=== PATIENT | female | born 1975 | race Caucasian/White ===

== ENCOUNTER 2018-07-26 15:22 | Emergency (ER) | payer OTHER, SELFPAY ==
[2018-07-26] VITALS (8 sets, daily range): BP systolic 131–161; BP diastolic 68–114; PULSE 107–130; RESP 14–24; TEMP 37.2–38.5; O2SAT 100
--- NOTE | 2018-07-26 15:31 | DI.RAD.S_ITS ---
PROCEDURE: XR CHEST 1V INDICATIONS: suspected sepsis TECHNIQUE: One view of the chest was acquired. COMPARISON: None. FINDINGS: Surgical changes and devices: None. Lungs and pleura: Lungs are clear. No pleural effusions or pneumothorax. Mediastinum: Mediastinal contours appear normal except for moderate size hiatal hernia behind the heart.. Heart size is normal. Bones and chest wall: No suspicious bony lesions. Overlying soft tissues appear unremarkable. IMPRESSION: Source of suspected sepsis syndrome is not seen. Moderate-sized hiatal hernia noted behind the heart. Dictated by: Rubin Aburto M.D. on 07/26/2018 at 16:31 Approved by: Rubin Aburto M.D. on 07/26/2018 at 16:31
--- NOTE | 2018-07-26 15:41 | ED.FEVER ---
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 Discharge Date/Time: 07/26/18 19:47 Interventions: ED Discharge Assessment Last Done: 07/26/18 19:08 Instructions: DI for Flank Pain Activity Restrictions/Additional Instructions: Please return as we talked about if you have any acutely worsening symptoms again, but otherwise please continue [id number] ibuprofen as needed and you can also add Tylenol or use your Excedrin for headache as needed. Please follow up as planned tomorrow with the [facility] so that they can help you get to more care and resources, and also please call the insurance administrators tomorrow to get help in finding a local PCP so you can follow up on your hiatal hernia. Prescriptions: No Action ibuprofen [Advil] 200 mg Tablet 200 mg PO PRN PRN (Reason: pain) RF: 0 Excedrin Extra Strength 1 dose PO PRN PRN (Reason: pain) RF: 0 <Stephen Coreas DO - Last Filed: 07/27/18 08:17> Cosign ED Attending Griffin Attestation: I was immediately available in the department for consultation. Documentation has been reviewed. I agree with assessment and plan.
[2018-07-26 15:52] LABS: WBC Urine None Seen (0-5/HPF)
[2018-07-26] MEDS: ONDANSETRON 4 MG/2 ML INJ IV (15:55)
[2018-07-26] MEDS: SODIUM CHLORIDE 0.9% 1,000 ML 1000 ML IV (15:55)
[2018-07-26] MEDS: KETOROLAC 60 MG/2 ML VIAL 30 MG IV (15:55)
[2018-07-26 15:59] LABS: Add Manual Diff / Slide Review NO; Basophils Absolute Auto 0 /uL (0-100); Basophils Percent Auto 0.3 % (0-2); Eosinophils Absolute Auto 100 /uL (0-450); Eosinophils Percent Auto 0.8 % (2-4); Hematocrit 38.7 % (36-46); Hemoglobin 12.7 g/dL (12.0-16.0); Lymphocytes Absolute Auto 1400 /uL (1100-4500); Lymphocytes Percent Auto 12.5 % (25-40); Mean Corpuscular HGB Conc 32.8 % (30-36); Mean Corpuscular Hemoglobin 30.3 PG (26-34); Mean Corpuscular Volume 92.2 fL (80-100); Monocytes Absolute Auto 1600 /uL (0-900); Monocytes Percent Auto 13.5 % (3-14); Neutrophils Absolute Auto 8400 /uL (1500-7000); Neutrophils Percent Auto 72.9 % (50-75); Platelet Count 359 X10^3/uL (150-400); Red Cell Distribution Width 13.6 % (11.6-14.8); White Blood Cell Count 11.5 X10^3/uL (4.5-11.0)
--- NOTE | 2018-07-26 16:00 | ED_ITS ---
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 Discharge Assessment Last Done: 07/26/18 19:08 Instructions: DI for Flank Pain Activity Restrictions/Additional Instructions: Please return as we talked about if you have any acutely worsening symptoms again, but otherwise please continue tdpk-zxl-yekqzfx ibuprofen as needed and you can also add Tylenol or use your Excedrin for headache as needed. Please follow up as planned tomorrow with the [facility] so that they can help you get to more care and resources, and also please call the insurance administrators tomorrow to get help in finding a local PCP so you can follow up on your hiatal hernia. Prescriptions: No Action ibuprofen [Advil] 200 mg Tablet 200 mg PO PRN PRN (Reason: pain) RF: 0 Excedrin Extra Strength 1 dose PO PRN PRN (Reason: pain) RF: 0 <Stephen Coreas DO - Last Filed: 07/27/18 08:17> Cosign ED Attending Griffin Attestation: I was immediately available in the department for consultation. Documentation has been reviewed. I agree with assessment and plan.
[2018-07-26 16:05] LABS: Prothrombin Time 11.7 SECONDS (10.1-12.7)
[2018-07-26 16:08] LABS: PTT Partial Thromboplastin Tim 33 SECONDS (26.4-36.2)
[2018-07-26 16:09] LABS: Bacteria Urine Few (2-10); Culture Indicated Urine Cult Not Indicated; RBC Urine 1-5/HPF (0-5/HPF); Squamous Epithelial Cell Urine None Seen (0-5/HPF)
[2018-07-26 16:11] LABS: Lactate (Lactic Acid) 1.5 mmol/L (0.7-2.1)
[2018-07-26 16:19] LABS: Alanine Aminotransferase 41 IU/L (9-52); Albumin 4.1 g/dL (3.5-5.0); Albumin Globulin Ratio 1.1 (1.0-2.8); Alkaline Phosphatase 88 U/L (38-126); Aspartate Aminotransferase 42 IU/L (14-36); Bilirubin Total 0.4 mg/dL (0.2-1.3); Blood Urea Nitrogen 12 mg/dL (7-17); Calcium 9.2 mg/dL (8.4-10.2); Carbon Dioxide 27 mmol/L (22-32); Chloride 99 mmol/L (98-107); Estimated Glomerular Filt Rate > 60.0 mL/min (>60); Globulin 3.7 g/dL (1.7-4.1); Glucose 87 mg/dL (70-100); HEMOLYSIS < 15 (0-50); Lipase 97 U/L (23-300); Potassium 3.7 mmol/L (3.4-5.1); Sodium 139 mmol/L (137-145); Total Protein 7.8 g/dL (6.3-8.2)
[2018-07-26] MEDS: ACETAMINOPHEN 325 MG TABLET 650 MG PO (16:23)
--- NOTE | 2018-07-26 16:28 | DI.CT.S_ITS ---
PROCEDURE: CT KIDNEY URETER BLADDER (KUB) INDICATIONS: Left flank pain for several weeks, fever TECHNIQUE: Noncontrast 5 mm thick sections acquired from the diaphragms to the symphysis. 5 mm thick coronal and sagittal reformats were then performed. For radiation dose reduction, the following was used: automated exposure control, adjustment of mA and/or kV according to patient size. COMPARISON: [facility], CR, XR CHEST 1V, 07/26/2018, 15:36. FINDINGS: Image quality: Excellent. Lung bases: Lung bases are clear. Heart size is normal. There is a unusually prominent hiatal hernia behind the heart with a thickening of the wall of the hiatal hernia it is difficult to accurately establish as sequela of crowding of the gastric wall folds versus mass. Urinary system: Both kidneys are normal in size. No kidney stones. No hydronephrosis or perinephric fat stranding. Both ureters appear non-dilated throughout their expected courses. Bladder wall thickness is normal; no calcified bladder stones. Other solid organs: Liver is normal in size. Gallbladder is not seen. Pancreas is normal in contours. Spleen is normal in size. No adrenal nodules. Peritoneum and bowel: Unenhanced bowel loops demonstrate normal wall thickness and caliber. No free fluid or air. Nodes and vessels: No retroperitoneal or mesenteric adenopathy by size criteria. Aorta and inferior vena cava are normal in caliber. Abdominal wall: No ventral hernias. Pelvis: No free pelvic fluid. No inguinal hernias or adenopathy. Pelvic phleboliths are seen adjacent to the expected course of the distal ureters but a definite ureteral stone is not found. The bladder appears normal. Bones: No suspicious bony lesions. No vertebral body compression fractures. IMPRESSION: 1. Unusually prominent hiatal hernia is noted with wall thickening to the degree that a mass lesion conceivably could be present. This would be relatively unlikely in a 43-year-old patient but remains a possible abnormality requiring followup. Please correlate clinically. Followup by upper GI examination or endoscopy may be warranted depending on the clinical findings. 2. A source of flank pain on the left is not identified. Reportedly a fever is present. A source of fever is not found. The study is performed without oral or intravenous contrast and therefore is quite limited. 3. A normal or abnormal gallbladder cannot be located. Surgical clips are not seen at the gallbladder fossa area but the gallbladder itself may simply be small/contracted. Dictated by: Rubin Aburto M.D. on 07/26/2018 at 16:58 Approved by: Rubin Aburto M.D. on 07/26/2018 at 17:10
[2018-07-26 16:34] LABS: Monotest Negative (Negative); Procalcitonin 0.11 ng/mL (<0.5)
[2018-07-26 16:35] LABS: Urine Amphetamines Positive (Negative); Urine Barbiturates Negative (Negative); Urine Benzodiazepines Negative (Negative); Urine Cocaine Negative (Negative); Urine MDMA Negative (Negative); Urine Methadone Negative (Negative); Urine Methamphetamines Positive (Negative); Urine Morphine/Opi cutoff 2000 Negative (Negative); Urine Oxycodone Negative (Negative); Urine Phencyclidine Negative (Negative); Urine Tetrahydrocannabinol Negative (Negative); Urine Tricyclic Antidepressant Negative (Negative)
--- NOTE | 2018-07-26 16:40 | PC.NURSE ---
Pt tearful, states to this RN, that she is suicidal, states she has a plan, she just needs to do it She feels like she needs to do it before they get to her first. When asked for clarification, she states she has a fillet knife in her car and she is going to slice her neck.
--- NOTE | 2018-07-26 16:44 | PC.NURSE ---
SUSAN-DRAGAN Note: RN talked with patient about 1:1 supervision and Patient safety Monitoring checks due to being suicidal. Pt. compliant. Pt. agreed to wear green scrubs. Pt. calm and laying down.
--- NOTE | 2018-07-26 17:19 | PC.NURSE ---
BROADCAST CORRESPONDENT-PLANT CLERK Note: facilities maintenance worker is talking with patient. Pt. is calm and interacting with social insurance adviser.
[2018-07-26 17:50] LABS: Influenza A and B by PCR Rapid Negative (Negative)
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
--- NOTE | 2018-07-26 19:03 | PC.NURSE ---
SCRUB WOMAN-CABLE FORMER Note: Patient has been cleared by social worker health services. No more 1:1 Ray notified. shower offered and Pt. accepted. Shower provided, Oral care provided, and Clean clothing provided.
--- NOTE | 2018-07-26 19:06 | PC.NURSE ---
IV removed, patient cleared by social work and Nupur from 1 on . Pt to take a shower prior to DC.
[2018-07-27 08:42] LABS: Enterococcus species Not Detected (Not Detect); Listeria monocytogenes Not Detected (Not Detect); Staphylococcus species Not Detected (Not Detect); Vancomycin-rest genes A/B Not Detected (Not Detect)
[2018-07-27 08:43] LABS: Acinetobacter baumannii Not Detected (Not Detect); Candida albicans Not Detected (Not Detect); Candida glabrata Not Detected (Not Detect); Candida krusei Not Detected (Not Detect); Candida parapsilosis Not Detected (Not Detect); Candida tropicalis Not Detected (Not Detect); Enterobacter cloacae complex Not Detected (Not Detect); Enterobacteriaceae species Detected (Not Detect); Haemophilus influenzae Not Detected (Not Detect); KPC (carbapenem-resist gene) Not Detected (Not Detect); Methicillin-resistant gene Not Detected (Not Detect); Neisseria meningitidis Not Detected (Not Detect); Proteus species Not Detected (Not Detect); Pseudomonas aeruginosa Not Detected (Not Detect); Serratia marcescens Not Detected (Not Detect); Streptococcus agalactiae (Gr B Not Detected (Not Detect); Streptococcus pneumonia Not Detected (Not Detect); Streptococcus pyogenes (Gr A) Not Detected (Not Detect); Streptococcus species Not Detected (Not Detect)
[2018-07-27 08:45] LABS: E. coli Detected (Not Detect)
== END 2018-07-26 19:47 | disposition home or self-care (01) ==
PROVIDERS: Emergency Medicine; Emergency Provider Internal Medicine
DX: R10.9 Unspecified abdominal pain (principal); R50.9 Fever, unspecified
CPT/HCPCS: 36415; 36591; 71045; 74176; 80053; 80305; 81003; 81015; 81025; 83605; 83690; 84145; 85025; 85610; 85730; 86318; 87040; 87150; 87186; 87205; 87400; 96361; 96374; 96375; 99284; 99285; J1885; J2405

== ENCOUNTER 2020-10-17 19:21 | Emergency (ER) | payer SELFPAY ==
[2020-10-17] VITALS (7 sets, daily range): BP systolic 174–201; BP diastolic 120–127; PULSE 102–122; RESP 16–26; TEMP 36.6; O2SAT 98–100
--- NOTE | 2020-10-17 19:41 | DI.RAD.S_ITS ---
PROCEDURE: XR CHEST 1V INDICATIONS: chest pain TECHNIQUE: One view of the chest was acquired. COMPARISON: [facility], CT, CT KIDNEY URETER BLADDER (KUB), 07/26/2018, 16:46. [facility], CR, XR CHEST 1V, 07/26/2018, 15:36. FINDINGS: Surgical changes and devices: None. Lungs and pleura: Lungs are clear. No pleural effusions or pneumothorax. Mediastinum: Mediastinal contours appear normal. Heart size is normal. Mild to moderate hiatal hernia. Bones and chest wall: No suspicious bony lesions. Overlying soft tissues appear unremarkable. IMPRESSION: Hiatal hernia. No evidence acute pulmonary process. Dictated by: John Herrera M.D. on 10/17/2020 at 21:05 Approved by: John Herrera M.D. on 10/17/2020 at 21:06
[2020-10-17 20:15] LABS: Add Manual Diff / Slide Review NO; Basophils Absolute Auto 100 /uL (0-100); Basophils Percent Auto 1.8 % (0-2); Eosinophils Absolute Auto 100 /uL (0-450); Eosinophils Percent Auto 1.1 % (2-4); Hematocrit 43.7 % (36-46); Hemoglobin 14.5 g/dL (12.0-16.0); Lymphocytes Absolute Auto 2300 /uL (1100-4500); Lymphocytes Percent Auto 30.9 % (25-40); Mean Corpuscular HGB Conc 33.2 % (30-36); Mean Corpuscular Hemoglobin 30.6 PG (26-34); Mean Corpuscular Volume 92.3 fL (80-100); Monocytes Absolute Auto 600 /uL (0-900); Monocytes Percent Auto 8.4 % (3-14); Neutrophils Absolute Auto 4300 /uL (1500-7000); Neutrophils Percent Auto 57.8 % (50-75); Platelet Count 287 X10^3/uL (150-400); Red Blood Cell Count 4.73 X10^6/uL (4.0-5.2); Red Cell Distribution Width 13.1 % (11.6-14.8); White Blood Cell Count 7.4 X10^3/uL (4.5-11.0)
[2020-10-17 20:26] LABS: Alanine Aminotransferase 19 IU/L (<35); Albumin 4.4 g/dL (3.5-5.0); Albumin Globulin Ratio 1.3 (1.0-2.8); Alkaline Phosphatase 82 U/L (38-126); Aspartate Aminotransferase 25 IU/L (14-36); BUN Creatinine Ratio 15.6 (6-22); Bilirubin Total 0.3 mg/dL (0.2-1.3); Blood Urea Nitrogen 15 mg/dL (7-17); Calcium 10.1 mg/dL (8.4-10.2); Carbon Dioxide 30 mmol/L (22-32); Chloride 103 mmol/L (98-107); Creatine Kinase 62 U/L (30-135); Estimated Glomerular Filt Rate > 60.0 mL/min (>60); Globulin 3.5 g/dL (1.7-4.1); Glucose 108 mg/dL (70-100); HEMOLYSIS < 15 (0-50); Lipase 119 U/L (23-300); Potassium 3.5 mmol/L (3.4-5.1); Sodium 140 mmol/L (137-145); Total Protein 7.9 g/dL (6.3-8.2)
[2020-10-17 20:37] LABS: Troponin I < 0.012 ng/mL (0.01-0.034)
[2020-10-17 20:45] LABS: Acetaminophen < 10 ug/mL (10-30); Ethanol (ETOH) < 10 mg/dL; Salicylate 2.5 mg/dL (<20)
[2020-10-17 20:48] LABS: COVID19 -Nasal RAPID Negative (Negative)
[2020-10-17 21:00] LABS: Appearance Urine UA CLEAR; Bilirubin Urine UA NEGATIVE (NEGATIVE); Color Urine UA YELLOW; Glucose Urine UA NEGATIVE (Negative); Ketones Urine UA NEGATIVE (NEGATIVE); Leukocyte Esterase Urine UA NEGATIVE (NEGATIVE); Nitrite Urine UA POSITIVE (Negative); Occult Blood Urine UA NEGATIVE (Negative); Protein Urine UA NEGATIVE (Negative); Urobilinogen Urine UA 0.2 E.U./dL (0.2)
[2020-10-17 21:08] LABS: UR Morphine/Opiate cutoff 300 Negative (Negative); Ur Creatinine Normal (Normal); Ur Specific Gravity Normal (Normal); Urine Amphetamines Positive (Negative); Urine Barbiturates Negative (Negative); Urine Benzodiazepines Negative (Negative); Urine Cocaine Negative (Negative); Urine MDMA Negative (Negative); Urine Methadone Negative (Negative); Urine Methamphetamines Positive (Negative); Urine Oxycodone Negative (Negative); Urine Phencyclidine Negative (Negative); Urine Tetrahydrocannabinol Negative (Negative); Urine Tricyclic Antidepressant Negative (Negative); Urine pH Normal (Normal)
[2020-10-17 21:09] LABS: Pregnancy Test Urine Negative (Negative)
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
--- NOTE | 2020-10-17 21:14 | ED_ITS ---
HPI - General Adult General Chief complaint: Shortness of Breath/Dyspnea Stated complaint: THROAT AND JAW PAIN, difficulty breathing Time Seen by Provider: 10/17/20 19:49 Source: patient Mode of arrival: Ambulatory History of Present Illness HPI narrative: Patient is a 45-year-old female who is here for evaluation of several weeks of bilateral lower jaw pain. She states that she has seen a dentist a couple weeks ago and was told that she had a abscess. She was given a prescription for antibiotics. She states she has them in her car but has never taken them. She cannot give a specific reason why. She does not know exactly what antibiotics she has been given. She states over the past couple days the pain has been worsening. She also describes a lump in the left side of her neck that also has been enlarging. She feels like the pain is on the front of her neck causing her to have some problems with breathing. Related Data Home Medications Medication Instructions Recorded Confirmed diphenhydramine 25 #0 08/30/12 mg-acetaminophen 500 mg tablet (Tylenol PM Extra Strength) ibuprofen 200 mg tablet (Advil) #0 08/30/12 Excedrin Extra Strength 1 dose PO PRN PRN 07/26/18 07/26/18 ibuprofen 200 mg tablet (Advil) 200 mg PO PRN PRN 07/26/18 07/26/18 Previous Rx's Medication Instructions Recorded penicillin V potassium 500 mg 500 mg PO QID 7 Days #28 tab 10/18/20 tablet Allergies Allergy/AdvReac Type Severity Reaction Status Date / Time INGREDIENT: NO KNOWN - NO Allergy Unknown Uncoded 07/27/18 08:59 KNOWN DRUG ALLERGY narcotics AdvReac Intermediate Uncoded 07/27/18 08:59 Review of Systems Constitutional Comments: No fevers Eyes Eyes: Reports system reviewed and no additional complaints, except as documented ENT Ears, Nose, Mouth, and Throat: Reports as per HPI Cardiovascular Cardiovascular: Reports system reviewed and no additional complaints, except as documented Respiratory Respiratory: Reports as per HPI Gastrointestinal Gastrointestinal: Reports system reviewed and no additional complaints, except as documented Genitourinary Genitourinary: Reports system reviewed and no additional complaints, except as documented Musculoskeletal Musculoskeletal: Reports system reviewed and no additional complaints, except as documented Integumentary/Breasts Skin/Breast: Reports system reviewed and no additional complaints, except as documented Neurologic Neurologic: Reports system reviewed and no additional complaints, except as documented Psychiatric Comments: Patient did endorse being unsafe at home and having SI with a plan Hematologic/Lymphatic On Anticoagulants: No Allergic/Immunologic Allergic/Immunologic: Reports system reviewed and no additional complaints, except as documented Patient History Medical History Amenorrhea Williamson's cyst Fibromyalgia History of alcohol abuse History of ulcer disease Hypertension MRSA (methicillin resistant Staphylococcus aureus) carrier anemia Raynaud's disease Surgical History (Updated 07/27/18 @ 08:59 by Omaira Anne) History of repair of hiatal hernia Social History Smoking Status: Current every day smoker Smoking Status: Current every day smoker alcohol intake frequency: other Substance Use Type: methamphetamine Exam Initial Vital Signs Initial Vital Signs: Vital Signs Temperature 97.9 F 10/17/20 19:34 Pulse Rate 122 H 10/17/20 19:34 Respiratory Rate 16 10/17/20 19:34 Blood Pressure 174/120 H 10/17/20 19:34 Pulse Oximetry 99 10/17/20 19:34 Const General: cooperative and disheveled HENMT Head: normal to inspection Nose: external nose normal Face and sinus: normal facial exam Mouth: other (No abscess seen in the oral mucosa.) Teeth and gingiva: poor dentition Throat: posterior oropharynx normal Eyes General: appearance normal, both eyes and all related structures Neck Other: One left-sided 1 cm lymph node Resp Effort & Inspection: normal respiratory effort Cardio Rate: regular rate GI Inspection: normal to inspection Skin General: no rashes or lesions noted Neuro General: patient alert, patient awake, patient oriented x3 and moves all extremities Extrem General: normal to inspection and capillary refill normal Psych Appearance: grossly normal and disheveled Course Orders Ordered: ED Orders 10/17/20 19:41 Consult to BLOCK PILER - Manager Office Services Stat XR chest 1V Stat EKG-12 Lead Stat 10/17/20 20:05 Acetaminophen Stat Complete Blood Count AUTO DIFF Stat Comprehensive Metabolic Panel Stat Ethanol (ETOH) Stat Lipase Stat Salicylate Stat Thyroid Stimulating Hormone Stat Troponin & CK Cardiac Panel Stat 10/17/20 20:30 COVID19 -Nasal swab/Pre-Proc Stat 10/17/20 20:55 Test Urine Stat Urinalysis and Microscopic Stat Urine Culture Stat Urine Drug Screen, Rapid Stat Vital Signs Vital signs: Vital Signs - 8 hr 10/17/20 19:34 10/17/20 20:09 10/17/20 20:30 Temperature 97.9 F Pulse Rate 122 H 112 H 107 H Respiratory Rate 16 16 26 H Blood Pressure 174/120 H Pulse Oximetry 99 100 98 10/17/20 20:31 10/17/20 20:34 10/17/20 20:35 Temperature Pulse Rate 103 H 106 H 103 H Respiratory Rate 19 24 19 Blood Pressure 201/125 H 193/123 H 199/127 H Pulse Oximetry 99 99 100 10/17/20 21:00 Temperature Pulse Rate 102 H Respiratory Rate 16 Blood Pressure 174/121 H Pulse Oximetry 100 Medical Decision Making Lab Data Lab results reviewed: Yes I reviewed the patient's lab results. Result diagrams: 10/17/20 20:05 10/17/20 20:05 Labs: Lab Results 10/17/20 10/17/20 10/17/20 Range/Units 20:05 20:05 20:05 WBC 7.4 (4.5-11.0) X10^3/uL RBC 4.73 (4.0-5.2) X10^6/uL Hgb 14.5 (12.0-16.0) g/dL Hct 43.7 (36-46) % MCV 92.3 (80-100) fL MCH 30.6 (26-34) PG MCHC 33.2 (30-36) % RDW 13.1 (11.6-14.8) % Plt Count 287 (150-400) X10^3/uL Neut % (Auto) 57.8 (50-75) % Lymph % (Auto) 30.9 (25-40) % [facility] % (Auto) 8.4 (3-14) % Eos % (Auto) 1.1 L (2-4) % Baso % (Auto) 1.8 (0-2) % Neut # (Auto) 4300 (3150-1312) /uL Lymph # (Auto) 2300 (1261-0493) /uL [facility] # (Auto) 600 (0-900) /uL Eos # (Auto) 100 (0-450) /uL Baso # (Auto) 100 (0-100) /uL Sodium 140 (137-145) mmol/L Potassium 3.5 (3.4-5.1) mmol/L Chloride 103 (98-107) mmol/L Carbon Dioxide 30 (22-32) mmol/L BUN 15 (7-17) mg/dL Creatinine 0.96 (0.52-1.04) mg/dL Estimated GFR > 60.0 (>60) mL/min BUN/Creatinine Ratio 15.6 (6-22) Glucose 108 H (70-100) mg/dL Calcium 10.1 (8.4-10.2) mg/dL Total Bilirubin 0.3 (0.2-1.3) mg/dL AST 25 (14-36) IU/L ALT 19 (<35) IU/L Alkaline Phosphatase 82 (38-126) U/L Total Creatine Kinase 62 (30-135) U/L CK-MB (CK-2) TNP CK-MB (CK-2) Rel Index TNP Troponin I < 0.012 (0.01-0.034) ng/mL Total Protein 7.9 (6.3-8.2) g/dL Albumin 4.4 (3.5-5.0) g/dL Globulin 3.5 (1.7-4.1) g/dL Albumin/Globulin Ratio 1.3 (1.0-2.8) Lipase 119 (23-300) U/L TSH 1.71 (0.47-4.68) uIU/mL Urine Color Urine Appearance Urine pH (4.5-8.0) Ur Specific [place] (1.000-1.035) Urine Protein (Negative) Urine Glucose (UA) (Negative) g/dL Urine Ketones (NEGATIVE) Urine Occult Blood (Negative) Urine Nitrate (Negative) Urine Bilirubin (NEGATIVE) Urine Urobilinogen (0.2) E.U./dL Ur Leukocyte Esterase (NEGATIVE) Urine RBC (0-5/HPF) Urine WBC (0-5/HPF) Urine Bacteria (None) Ur Culture Indicated? Urine Test (Negative) Salicylates (<20) mg/dL U Opiates 300ng/mL cut (Negative) Ur Oxycodone Screen (Negative) Urine Methadone Screen (Negative) Acetaminophen (10-30) ug/mL Ur Barbiturates Screen (Negative) U Tricyclic Antidepress (Negative) Ur Phencyclidine Scrn (Negative) Ur Amphetamines Screen (Negative) U Methamphetamines Scrn (Negative) Ur MDMA Scrn (Ecstasy) (Negative) U Benzodiazepines Scrn (Negative) Urine Cocaine Screen (Negative) U Marijuana (THC) Screen (Negative) Ethyl Alcohol ( - 10) mg/dL SARS-CoV-2 (PCR) (Negative) 10/17/20 10/17/20 10/17/20 Range/Units 20:05 20:30 20:55 WBC (4.5-11.0) X10^3/uL RBC (4.0-5.2) X10^6/uL Hgb (12.0-16.0) g/dL Hct (36-46) % MCV (80-100) fL MCH (26-34) PG MCHC (30-36) % RDW (11.6-14.8) % Plt Count (150-400) X10^3/uL Neut % (Auto) (50-75) % Lymph % (Auto) (25-40) % [facility] % (Auto) (3-14) % Eos % (Auto) (2-4) % Baso % (Auto) (0-2) % Neut # (Auto) (9514-3292) /uL Lymph # (Auto) (5115-5211) /uL [facility] # (Auto) (0-900) /uL Eos # (Auto) (0-450) /uL Baso # (Auto) (0-100) /uL Sodium (137-145) mmol/L Potassium (3.4-5.1) mmol/L Chloride (98-107) mmol/L Carbon Dioxide (22-32) mmol/L BUN (7-17) mg/dL Creatinine (0.52-1.04) mg/dL Estimated GFR (>60) mL/min BUN/Creatinine Ratio (6-22) Glucose (70-100) mg/dL Calcium (8.4-10.2) mg/dL Total Bilirubin (0.2-1.3) mg/dL AST (14-36) IU/L ALT (<35) IU/L Alkaline Phosphatase (38-126) U/L Total Creatine Kinase (30-135) U/L CK-MB (CK-2) CK-MB (CK-2) Rel Index Troponin I (0.01-0.034) ng/mL Total Protein (6.3-8.2) g/dL Albumin (3.5-5.0) g/dL Globulin (1.7-4.1) g/dL Albumin/Globulin Ratio (1.0-2.8) Lipase (23-300) U/L TSH (0.47-4.68) uIU/mL Urine Color Urine Appearance Urine pH (4.5-8.0) Ur Specific [place] (1.000-1.035) Urine Protein (Negative) Urine Glucose (UA) (Negative) g/dL Urine Ketones (NEGATIVE) Urine Occult Blood (Negative) Urine Nitrate (Negative) Urine Bilirubin (NEGATIVE) Urine Urobilinogen (0.2) E.U./dL Ur Leukocyte Esterase (NEGATIVE) Urine RBC (0-5/HPF) Urine WBC (0-5/HPF) Urine Bacteria (None) Ur Culture Indicated? Urine Test Negative (Negative) Salicylates 2.5 (<20) mg/dL U Opiates 300ng/mL cut (Negative) Ur Oxycodone Screen (Negative) Urine Methadone Screen (Negative) Acetaminophen < 10 L (10-30) ug/mL Ur Barbiturates Screen (Negative) U Tricyclic Antidepress (Negative) Ur Phencyclidine Scrn (Negative) Ur Amphetamines Screen (Negative) U Methamphetamines Scrn (Negative) Ur MDMA Scrn (Ecstasy) (Negative) U Benzodiazepines Scrn (Negative) Urine Cocaine Screen (Negative) U Marijuana (THC) Screen (Negative) Ethyl Alcohol < 10 ( - 10) mg/dL SARS-CoV-2 (PCR) Negative (Negative) 10/17/20 10/17/20 Range/Units 20:55 20:55 WBC (4.5-11.0) X10^3/uL RBC (4.0-5.2) X10^6/uL Hgb (12.0-16.0) g/dL Hct (36-46) % MCV (80-100) fL MCH (26-34) PG MCHC (30-36) % RDW (11.6-14.8) % Plt Count (150-400) X10^3/uL Neut % (Auto) (50-75) % Lymph % (Auto) (25-40) % [facility] % (Auto) (3-14) % Eos % (Auto) (2-4) % Baso % (Auto) (0-2) % Neut # (Auto) (7637-7288) /uL Lymph # (Auto) (1525-4718) /uL [facility] # (Auto) (0-900) /uL Eos # (Auto) (0-450) /uL Baso # (Auto) (0-100) /uL Sodium (137-145) mmol/L Potassium (3.4-5.1) mmol/L Chloride (98-107) mmol/L Carbon Dioxide (22-32) mmol/L BUN (7-17) mg/dL Creatinine (0.52-1.04) mg/dL Estimated GFR (>60) mL/min BUN/Creatinine Ratio (6-22) Glucose (70-100) mg/dL Calcium (8.4-10.2) mg/dL Total Bilirubin (0.2-1.3) mg/dL AST (14-36) IU/L ALT (<35) IU/L Alkaline Phosphatase (38-126) U/L Total Creatine Kinase (30-135) U/L CK-MB (CK-2) CK-MB (CK-2) Rel Index Troponin I (0.01-0.034) ng/mL Total Protein (6.3-8.2) g/dL Albumin (3.5-5.0) g/dL Globulin (1.7-4.1) g/dL Albumin/Globulin Ratio (1.0-2.8) Lipase (23-300) U/L TSH (0.47-4.68) uIU/mL Urine Color Yellow Urine Appearance Clear Urine pH 6.5 (4.5-8.0) Ur Specific [place] 1.010 (1.000-1.035) Urine Protein Negative (Negative) Urine Glucose (UA) Negative (Negative) g/dL Urine Ketones Negative (NEGATIVE) Urine Occult Blood Negative (Negative) Urine Nitrate Positive H (Negative) Urine Bilirubin Negative (NEGATIVE) Urine Urobilinogen 0.2 (0.2) E.U./dL Ur Leukocyte Esterase Negative (NEGATIVE) Urine RBC 0-1/hpf (0-5/HPF) Urine WBC 0-1/hpf (0-5/HPF) Urine Bacteria Many (>30) H (None) Ur Culture Indicated? Specimen cultured Urine Test (Negative) Salicylates (<20) mg/dL U Opiates 300ng/mL cut Negative (Negative) Ur Oxycodone Screen Negative (Negative) Urine Methadone Screen Negative (Negative) Acetaminophen (10-30) ug/mL Ur Barbiturates Screen Negative (Negative) U Tricyclic Antidepress Negative (Negative) Ur Phencyclidine Scrn Negative (Negative) Ur Amphetamines Screen Positive H (Negative) U Methamphetamines Scrn Positive H (Negative) Ur MDMA Scrn (Ecstasy) Negative (Negative) U Benzodiazepines Scrn Negative (Negative) Urine Cocaine Screen Negative (Negative) U Marijuana (THC) Screen Negative (Negative) Ethyl Alcohol ( - 10) mg/dL SARS-CoV-2 (PCR) (Negative) MDM Narrative Medical decision making narrative: Patient is medically cleared. She does have fairly poor dentition. There is no definitive abscess seen on the exam today that would require an incision and drainage. She states she has been diagnosed with a dental infection is been prescribed antibiotics but has not been taking them. Given this history of will start her on antibiotics. When she was in triage she did endorse that she did not feel safe at home. She did not express any of these thoughts to myself. She states she is here for ?medical reasons ?and like those addressed and then to be discharged home. She was seen by soc ial work and expressed more specifics about how she was feeling. Please see the social work note regarding this. I feel that since she made these statements that evaluation for detainment should be explored. Patient was evaluated by [facility] and was deemed that there was no specific indication for detainment. They have had contact with her in the past. She was agreeable with a short follow-up tomorrow that was set up by DCR will start the patient on antibiotics for her dental infection. Has a nitrite positive urine but we will wait for a culture to result for starting any antibiotics for this. Patient was given her labs and x-ray on a CD per her request. Discharge Plan Departure Patient Disposition: Home Clinical Impression: Pain, dental Instructions: DI for Dental Pain Activity Restrictions/Additional Instructions: It is important that you start taking the antibiotics as directed. I recommend that you make a follow-up appointment with your dentist. I also recommend you contact your primary doctor for a follow-up. If you do not have a primary doctor you can contact the health resource is coordinator at [phone]. Return to the emergency department for any new or worsening symptoms Prescriptions: New penicillin V potassium 500 mg tablet 500 mg PO QID 7 Days Qty: 28 RF: 0 No Action ibuprofen [Advil] 200 MG tablet Qty: 0 RF: 0 diphenhydramine-acetaminophen [Tylenol PM Extra Strength] 500 MG/25 MG tablet Qty: 0 RF: 0 ibuprofen [Advil] 200 mg Tablet 200 mg PO PRN PRN (Reason: pain) RF: 0 Excedrin Extra Strength 1 dose PO PRN PRN (Reason: pain) RF: 0 Referrals: Shakila Jordan MD [Primary Care Provider] -
[2020-10-17 21:17] LABS: Thyroid Stimulating Hormone 1.71 uIU/mL (0.47-4.68)
[2020-10-17 21:41] LABS: pH Urine UA 6.5 (4.5-8.0)
[2020-10-17 21:43] LABS: Bacteria Urine Many (>30); Culture Indicated Urine Specimen Cultured; RBC Urine 0-1/HPF (0-5/HPF); WBC Urine 0-1/HPF (0-5/HPF)
--- NOTE | 2020-10-17 22:31 | PC.NURSE ---
Pt is wanting to leave and has consented to stay and wait for lab work. Pt is currently sleeping.
--- NOTE | 2020-10-17 23:12 | PC.NURSE ---
PT stopped in hallway and demanding that she be allowed to go home. that she only feels safe in her car and that she is not suicidal. Pt redirected back to bed. Dr Terry at bedside explaining need for her to remain in Ed until [facility] assessment. Pt overheard talking on phone to friend stating that she lied about the gun so that we would take her seriously and that she doesn't own and gun and is not legal for her to obtain a gun in [facility]. PIV removed. Dayana updated on pt and will be taking over care.
--- NOTE | 2020-10-17 23:47 | PC.NURSE ---
Patient expresses that she is upset by this situation. Patient standing in the doorway of her room.
--- NOTE | 2020-10-17 23:51 | PC.NURSE ---
Patient asked to change into hospital provided scrubs. Patient was not willing to do so. Asked to talk to the doctor about it.
--- NOTE | 2020-10-17 23:57 | PC.NURSE ---
Patient attempted to walk out and leave but this ANESTHESIOLOGIST AND CRITICAL CARE and fellow nurse were able to talk to her and get her to her room. Patient then came to the doorway and verbalized being very upset.
--- NOTE | 2020-10-18 01:47 | PC.NURSE ---
Pt has been demanding with staff, at times she has yelled at staff then cried. She states that she was lying about wanting to harm herself. Eventually she agreed to get into scrubs and cooperate until DCR could do a consult over the internet with the tablet.
== END 2020-10-18 02:06 | disposition home or self-care (01) ==
PROVIDERS: Emergency Medicine; Emergency Provider Emergency Medicine; Family Provider Family Medicine; PCP Family Medicine
DX: K08.89 Other specified disorders of teeth and supporting structures (principal); R06.00 Dyspnea, unspecified; R07.9 Chest pain, unspecified; Z20.822 Contact with and (suspected) exposure to COVID-19
CPT/HCPCS: 36415; 71045; 80053; 80305; 80320; 80329; 81001; 81025; 82550; 83690; 84443; 84484; 85025; 87077; 87086; 87186; 87635; 93005; 99284; C9803; G0480